=== PATIENT | female | born 1995 | race Caucasian/White ===

== ENCOUNTER 2024-09-17 12:25 | Observation (INO) | payer OTHER ==
[2024-09-17 16:19] VITALS: BMI 23.6
[2024-09-17] MEDS ORDERED: hydrALAZINE 20 MG/ML VIAL SLOW IVP PRN (16:25)
[2024-09-17] MEDS ORDERED: Ipratropium/Albuterol 3 ML NEB NEB PRN (16:25)
[2024-09-17] MEDS ORDERED: Promethazine HCl 25 MG/ML VIAL IM PRN (16:25)
[2024-09-17] MEDS ORDERED: Glucagon 1 MG/ML KIT IM PRN (16:25)
[2024-09-17] MEDS ORDERED: Dextrose 50% Abboject 50 ML SYRINGE SLOW IVP PRN (16:25)
[2024-09-17] MEDS ORDERED: Mag-Al 1200 mg/1200 mg/30 ML UDCUP PO PRN (16:25)
[2024-09-17] MEDS ORDERED: Calcium Carbonate 500 MG ChewTAB PO PRN (16:25)
[2024-09-17] MEDS ORDERED: HYDROcodone/Acetaminophen 7.5/325 mg Tablet PO PRN (16:25)
[2024-09-17] MEDS ORDERED: Dextrose 5% in Water 1,000 ML IV PRN (16:25)
[2024-09-17] MEDS: Ketorolac Tromethamine 30 MG (1 mL) VIAL IVP PRN (16:59)
[2024-09-17] MEDS: Pantoprazole 40 MG VIAL IVP SCH (16:59)
[2024-09-17] MEDS: D5 1/2 NS w/20 mEq KCL 1,000 ML IV SCH (16:59)
[2024-09-17] MEDS: LevoFLOXacin 500 mg/D5W 500 MG in Premix 1 BAG IVPB SCH (16:59)
[2024-09-17 17:32] LABS: #Basophils 0.04 10x3/uL (0.0-0.2); %Basophils 0.9 % (0.0-1.0); %Lymphocytes 14.8 % (21.0-51.0); %Monocytes 15.6 % (0.0-10.0); %Neutrophils 60.5 % (42.0-75.0); Hematocrit 37.5 % (36.0-47.0); Hemoglobin 12.7 g/dL (12.0-16.0); Mean Corpuscular HGB CONC 33.9 g/dL (32.0-36.0); Mean Corpuscular Hemoglobin 28.9 pg (27.0-31.0); Mean Corpuscular Volume 85.2 fL (78.0-98.0); Platelet Count 287 10x3/uL (130-400); RBC Distribution Width 12.3 % (11.5-14.5)
[2024-09-17 17:47] LABS: ALT (SGPT) 611 U/L (8-55); AST (SGOT) 513 U/L (5-34); Alkaline Phosphatase 198 U/L (40-110); Anion Gap 14 mmol/L (10-20); BUN (Urea Nitrogen) 10 mg/dL (7.0-18.7); Calc. Creatinine Clearance 122 mL/min (70-130); Calcium 9.2 mg/dL (7.8-10.44); Carbon Dioxide 20 mmol/L (22-29); Chloride 106 mmol/L (98-107); Estimated GFR 109; Globulin 3.5 g/dL (2.4-3.5); Glucose 95 mg/dL (70-105); Lipase 27 U/L (8-78); Potassium 3.6 mmol/L (3.5-5.1); Protein, Total 7.5 g/dL (6.0-8.3); Sodium 136 mmol/L (136-145)
[2024-09-17] MEDS: Milk Of Magnesia 30 ML UDCUP PO SCH (18:27)
[2024-09-17] MEDS: Morphine 4 MG/ML VIAL SLOW IVP PRN (20:54)
[2024-09-17] MEDS: Ondansetron PF 4 MG/2 ML Vial IVP PRN (20:54)
[2024-09-17] MEDS: Magnesium Citrate 300 ML BOT PO SCH (20:54)
[2024-09-17] MEDS: metroNIDAZOLE 500 MG in Premix 1 BAG IVPB SCH (20:58)
[2024-09-18 05:09] LABS: ALT (SGPT) 585 U/L (8-55); AST (SGOT) 398 U/L (5-34); Alkaline Phosphatase 231 U/L (40-110); Bilirubin, Total 1.4 mg/dL (0.2-1.2); Lipase 21 U/L (8-78); Protein, Total 7.5 g/dL (6.0-8.3)
[2024-09-18] MEDS: Acetaminophen 325 MG TAB PO PRN (08:06)
[2024-09-18] MEDS: Pantoprazole 40 MG VIAL IVP SCH (08:08)
[2024-09-18] MEDS ORDERED: Rocuronium Bromide 10 MG/ML (10ML VIAL) ONE (13:09)
[2024-09-18] MEDS ORDERED: Ondansetron PF 4 MG/2 ML Vial ONE (13:09)
[2024-09-18] MEDS ORDERED: fentaNYL 50 mcg/mL 1 mL Vial ONE (13:09)
[2024-09-18] MEDS ORDERED: Lidocaine 2% PF 5 ML VIAL ONE (13:09)
[2024-09-18] MEDS ORDERED: Midazolam HCl 2 mg/2 ml Vial ONE (13:09)
[2024-09-18] MEDS ORDERED: Dexamethasone 4 mg/ml Vial ONE (13:09)
[2024-09-18] MEDS ORDERED: PROPOFOL 20 ML ONE (13:25)
[2024-09-18] MEDS ORDERED: Indomethacin 50 MG SUPP ONE (13:27)
[2024-09-18] MEDS ORDERED: Iopamidol 30 ML ONE (13:27)
[2024-09-18] MEDS ORDERED: SUCCINYLCHOLINE/SOD CL,ISO/PF 200 MG/10 ML SYRINGE FS ONE (13:46)
[2024-09-18] MEDS ORDERED: SUGAMMADEX SODIUM 200 MG/2 ML VIAL ONE (14:06)
[2024-09-18] MEDS ORDERED: PHENYLEPHRINE-NS 100 MCG/ML 10 ML SYRINGE ONE (14:07)
[2024-09-18] MEDS ORDERED: metroNIDAZOLE 500 MG (100 mL) BAG ONE (14:18)
[2024-09-19 05:35] LABS: #Basophils Less than 0.03 10x3/uL (0.0-0.2); %Basophils 0.5 % (0.0-1.0); %Eosinophils 1.6 % (0.0-10.0); %Lymphocytes 27.3 % (21.0-51.0); %Monocytes 18.2 % (0.0-10.0); %Neutrophils 52.2 % (42.0-75.0); Hematocrit 33.8 % (36.0-47.0); Mean Corpuscular HGB CONC 32.5 g/dL (32.0-36.0); Mean Corpuscular Hemoglobin 28.6 pg (27.0-31.0); Platelet Count 243 10x3/uL (130-400); RBC Distribution Width 12.9 % (11.5-14.5); Red Blood Cell (RBC) Count 3.84 mill/uL (4.20-5.40)
[2024-09-19 05:56] LABS: ALT (SGPT) 380 U/L (8-55); AST (SGOT) 182 U/L (5-34); Albumin 3.2 g/dL (3.5-5.0); Alkaline Phosphatase 179 U/L (40-110); Anion Gap 8 mmol/L (10-20); BUN (Urea Nitrogen) 5 mg/dL (7.0-18.7); Bilirubin, Total 0.3 mg/dL (0.2-1.2); Calc. Creatinine Clearance 109 mL/min (70-130); Calcium 8.3 mg/dL (7.8-10.44); Carbon Dioxide 24 mmol/L (22-29); Chloride 108 mmol/L (98-107); Estimated GFR 96; Glucose 133 mg/dL (70-105); Potassium 3.6 mmol/L (3.5-5.1); Protein, Total 6.2 g/dL (6.0-8.3); Sodium 136 mmol/L (136-145)
[2024-09-19] MEDS: FLU (Fluarix Triv) TS24-25(6MOS UP)/PF 45 MCG/0.5 ML Syringe IM ONE (09:08)
[2024-09-19] MEDS: Benzocaine/Menthol 1 LOZ LOZ PO PRN (10:37)
[2024-09-19 15:22] VITALS: BP 102/62; TEMP 98.6
== END 2024-09-19 15:35 | disposition home or self-care (01) ==
LOC: SURG B 15:47
PROVIDERS: ADMIT Surgery; ATTEND Surgery
PROC: 0FC98ZZ Extirpation of Matter from Common Bile Duct, Via Natural or Artificial Opening Endoscopic (ICD-10-PCS; principal; 2024-09-18)
DX: K83.8 Other specified diseases of biliary tract (principal); R79.89 Other specified abnormal findings of blood chemistry; Z90.49 Acquired absence of other specified parts of digestive tract; Z90.89 Acquired absence of other organs; Z98.51 Tubal ligation status; Z88.0 Allergy status to penicillin; Z79.51 Long term (current) use of inhaled steroids; Z79.2 Long term (current) use of antibiotics; Z79.899 Other long term (current) drug therapy
CPT/HCPCS: 36415; 74330; 80053; 80076; 83690; 85025; 87400; 96374; 96375; 96376; G0378; J1100; J1885; J1956; J2250; J2272; J2405; J2470; J2704; J3010; J3480; Q9967